=== PATIENT | female | born 1955 | race Caucasian/White ===

== ENCOUNTER → 2016-05-22 | Outpatient (CLI) | payer BC ==
[~2016-05-22] MED LIST: THROMBIN (RECOMBINANT) 5,000 UNIT VIAL TP ONE
--- NOTE | 2016-05-22 15:22 | MA ---
Diagnostic Left Digital Mammogram History: Post ultrasound guided biopsy.Evaluate marker placement. Comparison: April 17, 2016. Technique: Two views of the left breast. Findings: An ultrasound placed clip is present in the breast. There is no significant postprocedural hematoma. The clip is in appropriate position.. Impression: Excellent post procedural mammogram . Recommendation: Assuming a benign diagnosis, then a six-month followup left mammogram is recommended to reestablish a baseline.
--- NOTE | 2016-05-22 16:55 | US ---
Vacuum-Assisted Ultrasound-Guided Core Biopsy Left Breast History: Left breast nodule 10:00 radial 4 cm from the nipple Crosscutting Measure #226: Current tobacco user: no. Technique: Following informed consent, the nodule within the 10:00 position of the left breast was l ocalized from the medial approach with the patient supine. The skin was marked and then prepped and d raped in sterile fashion. Following local anesthesia with 1% lidocaine, lidocaine mixed with epinephr ine was injected deeper within the breast tissue. Marcaine was injected deep to the lesion 2 elevate it off the pectoral muscle. A small skin jessa was placed on the skin surface, through which the 9-gau Nexant vacuum-assisted core biopsy needle was advanced with ultrasound guidance into the deep ashley n of the mass. Numerous core biopsy samples were obtained through the mass. A Suros titanium clip was then placed in the biopsy bed. Marcaine was then injected at the biopsy site for prolonged analgesia . Hemostasis was obtained, a sterile pressure dressing was applied and the patient sent for a postpro cedural mammogram to document clip placement and to observe for postprocedural hematoma formation. Brenda alarcon was then discharged without complication, with instructions to call us with any thoughts, complicat ions or concerns. Impression: 1. Successful ultrasound-guided core biopsy of mass left breast, 10:00, 4 cm from the nipple 2. Successful deployment of Suros titanium clip positioned immediately adjacent to the biopsy site.
== END ==
LOC: FIMAGING 13:39
PROVIDERS: ATTEND Physician Assistant
PROC: 0HBU3ZX Excision of Left Breast, Percutaneous Approach, Diagnostic (ICD-10-PCS; principal; 2016-05-22)
DX: N63 Unspecified lump in breast (principal)
CPT/HCPCS: 19083; G0206